=== PATIENT | female | born 1960 | race Caucasian/White ===

== ENCOUNTER 2016-10-06 13:24 | Emergency (ER) | payer BC ==
[~2016-10-06] VITALS: Ht 162.6 cm; Wt 72.7 kg
[~2016-10-06 13:24] MED LIST: BACTROBAN 22GM22 GM NAS; CEPHALEXIN500 M1 PO; EXCEDRIN1 TAB PO; PROMETHAZINE12.5 M5 PO
[2016-10-06 13:25] VITALS: TEMP 97.2
[2016-10-06] MEDS ORDERED: TEGRETOL 1100 MG/TAB PO (13:30)
[2016-10-06] MEDS ORDERED: EPITOL PO (13:33)
[2016-10-06 14:07] LABS: PH 5 (5-8); SQUAMOUS EPITHELIAL 0-2 /hpf; URINE APPEARANCE Hazy; URINE BACTERIA None Seen /hpf; URINE BILIRUBIN Negative (NEGATIVE); URINE BLOOD Negative (NEGATIVE); URINE COLOR Yellow; URINE GLUCOSE Negative (NEGATIVE); URINE KETONE Trace (NEGATIVE); URINE RBC 0-2 /hpf; URINE UROBILINOGEN Negative (NEGATIVE); URINE WBC 0-2 /hpf
[2016-10-06] MEDS ORDERED: PHENERGAN 25 TA25 MG PO (14:28)
[2016-10-06 14:42] LABS: HEMATOCRIT 39.8 % (37.0-47.0); HEMOGLOBIN 13.6 g/dl (12.5-16.0); MEAN CELL VOLUME 94 fl (80.0-100.0); MEAN CORPUSCULAR HEMOGLOBIN 32 pg (27.0-31.0); MEAN CORPUSCULAR HGB CONC 34 g/dl (33.0-37.0); MEAN PLATELET VOLUME 10.6 fl (7.4-10.4); PLATELET COUNT 183 K/mm3 (130-400); RED BLOOD COUNT 4.25 M/mm3 (4.10-5.30); REDCELL DISTRIBUTION WIDTH-CV 14.5 % (11.5-14.5); WHITE BLOOD COUNT 13.3 K/mm3 (4.8-10.8)
[2016-10-06 14:48] LABS: ADD PATHOLOGY DIFF REVIEW NO
[2016-10-06 14:57] LABS: ADJUSTED CALCIUM 9.1 mg/dL (8.4-10.2); ALANINE AMINOTRANSFERASE 29 U/L (9-52); ALBUMIN 3.7 gm/dL (3.5-5.0); ALKALINE PHOSPHATASE 96 U/L (50-136); ANION GAP 11 mmol/L (7-16); BILIRUBIN,TOTAL 0.6 mg/dL (0.0-1.0); BLOOD UREA NITROGEN 14 mg/dL (7-17); CALCIUM 8.9 mg/dL (8.4-10.2); CARBON DIOXIDE 24 mmol/L (22-30); CHLORIDE 107 mmol/L (98-107); CREATININE, serum 0.88 mg/dL (0.52-1.25); GLUCOSE 97 mg/dL (74-106); POTASSIUM 3.9 mmol/L (3.4-5.0); SODIUM 142 mmol/L (137-145); TOTAL PROTEIN 6.3 gm/dL (6.4-8.2)
[2016-10-06 15:06] LABS: BAND 8 % (0-10); EOSINOPHIL 1 % (0-4); NEUTROPHILS 88 % (42.0-75.2); PLATELET ESTIMATE NORMAL (NORMAL); TOTAL CELLS COUNTED 100
[2016-10-06 15:14] LABS: TROPONIN-I < 0.012 ng/mL (0.000-0.034)
[2016-10-06 17:02] VITALS: BP 109/71; PULSE 65
== END 2016-10-06 17:05 | disposition home or self-care (01) ==
LOC: COL.ER 13:24
PROVIDERS: Emergency Medicine
DX: K52.9 Noninfective gastroenteritis and colitis, unspecified (principal); R55 Syncope and collapse
CPT/HCPCS: J2550; J7030

== ENCOUNTER 2016-11-22 11:15 | Outpatient (RCR) | payer BC ==
[~2016-11-22 11:15] MED LIST changes: +EPITOL PO; +PHENERGAN 25 TA25 MG PO; +TEGRETOL 1100 MG/TAB PO
== END 2016-11-28 | disposition still patient (30) ==
LOC: MKS.ESL.PT
DX: Z47.89 Encounter for other orthopedic aftercare (principal); M25.872 Other specified joint disorders, left ankle and foot

== ENCOUNTER 2016-12-01 11:15 | Outpatient (RCR) | payer BC | END 2016-12-05 13:28 | LOC: MKS.ESL.PT 11:15 | DX: Z47.89 Encounter for other orthopedic aftercare (principal); M25.872 Other specified joint disorders, left ankle and foot; Z98.1 Arthrodesis status ==

== ENCOUNTER → 2017-02-14 | Outpatient (CLI) | payer BC | LOC: MC.RAD 11:00 | DX: Z12.31 Encounter for screening mammogram for malignant neoplasm of breast (principal) ==

== ENCOUNTER 2017-05-10 12:33 | Outpatient (RCR) | payer BC | END 2017-05-16 16:28 | disposition home or self-care (01) | LOC: MKS.ESL.PT 12:33 | DX: Z01.818 Encounter for other preprocedural examination (principal); S83.241A Other tear of medial meniscus, current injury, right knee, initial encounter ==

== ENCOUNTER 2017-05-23 14:49 | Outpatient (RCR) | payer BC | END 2017-08-21 | LOC: MKS.ESL.PT | DX: Z47.89 Encounter for other orthopedic aftercare (principal); Z98.890 Other specified postprocedural states ==

== ENCOUNTER 2017-10-13 13:00 | Outpatient (RCR) | payer BC | END 2017-11-30 11:35 | disposition home or self-care (01) | LOC: MKS.ESL.PT 13:00 | DX: M22.2X1 Patellofemoral disorders, right knee (principal); M76.821 Posterior tibial tendinitis, right leg; M62.81 Muscle weakness (generalized) ==

== ENCOUNTER → 2018-03-15 | Outpatient (CLI) | payer BC | LOC: MC.RAD 09:19 | DX: Z12.31 Encounter for screening mammogram for malignant neoplasm of breast (principal) ==

== ENCOUNTER → 2019-04-25 | Outpatient (CLI) | payer BC | LOC: MC.RAD 03-18 09:45 | DX: Z12.31 Encounter for screening mammogram for malignant neoplasm of breast (principal) ==

== ENCOUNTER → 2020-04-27 | Outpatient (CLI) | payer BC | LOC: MC.RAD 12:57 | DX: Z12.31 Encounter for screening mammogram for malignant neoplasm of breast (principal) ==

== ENCOUNTER → 2021-08-18 | Outpatient (CLI) | payer BC | LOC: MC.RAD 10:59 | DX: Z12.31 Encounter for screening mammogram for malignant neoplasm of breast (principal) ==